=== PATIENT | female | born 1985 | race Caucasian/White ===

== ENCOUNTER 2021-08-04 17:24 | Emergency (ER) | payer OTHER ==
[~2021-08-04] VITALS: Ht 160 cm; Wt 63.5 kg
[2021-08-04 17:30] VITALS: BP 145/104
--- NOTE | 2021-08-04 17:30 | NUR ---
pt w/c assisted to bed 08 from triage.
--- NOTE | 2021-08-04 19:00 | NUR ---
36 Y/O FEMALE BIB SELF C/O HEAD INJURY APPROX. 1 HR AGO. PT STATES MUTIPLE METAL POLES FELL DIRECTLY ON HER HEAD SHE WAS PUSHING THEM. PT REPORT VOMITING. PT DENIES LOC. SHE IS EXPERIENCING [place] WITH DIZZINESS. PT IS ALERT AND ORIENTED X4. SHE DENIES SOB, CHEST PAIN. BED IN LOWEST POSITION. BED RAIL X1. PMH: DENIES MEDS: DENIES NKA
--- NOTE | 2021-08-04 19:15 | NUR ---
Pt report given to LUCIA ALLEN. Transfer of care at this time.
[2021-08-04] MEDS ORDERED: ACETAMINOPHEN EXTRA STRENGTH 500 MG TAB PO ONE (19:55)
[2021-08-04 20:50] VITALS: BP 125/84
--- NOTE | 2021-08-04 20:51 | NUR ---
Patient discharged with v/s stable. Written and verbal after care instructions for concussion given and explained. Patient verbalized understanding. Ambulatory with steady gait. All questions addressed prior to discharge. Advised to follow up with PMD. VSS, A/OX4, AMBULATORY, UNLABORED BREATHING, AND CALM DEMEANOR.
== END 2021-08-04 20:50 | disposition home or self-care (01) ==
LOC: MED 17:24
DX: S06.0X0A Concussion without loss of consciousness, initial encounter (principal); W22.8XXA Striking against or struck by other objects, initial encounter; Y93.89 Activity, other specified; Y92.89 Other specified places as the place of occurrence of the external cause; Y99.8 Other external cause status
CPT/HCPCS: 70450; 99284